=== PATIENT | male | born 2000 | race Caucasian/White ===

== ENCOUNTER 2020-04-28 12:38 | Emergency (ER) | payer SELFPAY ==
[~2020-04-28] VITALS: Ht 177.8 cm; Wt 65.8 kg
--- NOTE | 2020-04-28 12:53 | Emergency Department Note ---
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 Historian: Patient Arrival Mode: Car Circuits Engineer Required: No Onset (how long ago): hour(s) (1) Location: right forearm Quality: pain Radiation: Reports non-radiation Severity: mild Onset quality: sudden Timing of current episode: constant Progression: improving Chronicity: new Context: Denies recent illness Relieving factors: none Exacerbating factors: none Associated symptoms: Reports denies other symptoms Treatments prior to arrival: none Past Medical/Family History Physician Review I have reviewed the patient's past medical and family history. Any updates have been documented here. Past Medical History Recent Fever: No Clinical Suspicion of Infectio: No New/Unexplained Change in Ment: No Past Medical History: None Past Surgical History: None Social History Smoking Cessation: Never Smoker Counseling Performed: No Alcohol Use: Social Any Illegal Drug Use: No TB Exposure/Symptoms: No Physically hurt or threatened: No Family History Family history of heart diseas: No Other Any Pre-Existing Lines (PICC,: No Review of Systems Review of Systems Constitutional: Reports no symptoms EENTM: Reports no symptoms Cardiovascular: Reports no symptoms Respiratory: Reports no symptoms Gastrointestinal: Reports no symptoms Genitourinary: Reports no symptoms Musculoskeletal: Reports no symptoms Integumentary: Reports as per HPI Neurological: Reports no symptoms Psychological: Reports no symptoms Endocrine: Reports no symptoms Hematological/Lymphatic: Reports no symptoms Physical Exam Related Data Allergies: Coded Allergies: No Known Allergies (Unverified , 04/28/20) Triage Vital Signs Vital Signs Date Time Temp Pulse Resp B/P (MAP) Pulse Ox O2 Delivery O2 Flow Rate FiO2 04/28/20 12:42 98.1 65 16 122/72 100 Room Air Vital signs reviewed: Yes Physical Exam CONSTITUTIONAL Constitutional: Present well-developed, Present well-nourished HENT HENT: Present normocephalic, Present atraumatic, Present oropharynx clear/moist, Present nose normal HENT L/R: Present left ext ear normal, Present right ext ear normal EYES Eyes: Reports PERRL, Reports conjunctivae normal NECK Neck: Present ROM normal PULMONARY Pulmonary: Present effort normal, Present breath sounds normal CARDIOVASCULAR Cardiovascular: Present regular rhythm, Present heart sounds normal, Present capillary refill normal, Present normal rate GASTROINTESTINAL Abdominal: Present soft, Present nontender, Present bowel sounds normal GENITOURINARY Genitourinary: Present exam deferred SKIN Skin: Present warm, Present dry, Present other (punctate sting gladis on volar right forearm, no swelling, no rash) MUSCULOSKELETAL Musculoskeletal: Present ROM normal NEUROLOGICAL Neurological: Present alert, Present oriented x 3, Present no gross motor or sensory deficits PSYCHOLOGICAL Psychological: Present mood/affect normal, Present judgement normal Assessment & Plan Medical Decision Making MDM no studies needed Reassessment Reassessment gave Bendryl here, take q6h prn, and Pepcid 20 BID x 5 days, F/U PCP Assessment & Plan Final Impression: (1) Hymenoptera sting Depart Disposition: HOME, SELF-CARE Last Vital Signs Date Time Temp Pulse Resp B/P (MAP) Pulse Ox O2 Delivery O2 Flow Rate FiO2 04/28/20 12:42 98.1 65 16 122/72 100 Room Air ANDRESSA HER MD Apr 28, 2020 12:53
[2020-04-28] MEDS ORDERED: DIPHENHYDRAMINE HCL 25 MG CAP PO ONE (13:00)
[2020-04-28] MEDS ORDERED: DIPHENHYDRAMINE HCL 25 MG CAP ONE (13:01)
== END 2020-04-28 12:54 | disposition home or self-care (01) ==
LOC: ER 12:42
DX: T63.461A Toxic effect of venom of wasps, accidental (unintentional), initial encounter (principal)
CPT/HCPCS: 99282